=== PATIENT | female | born 1985 | race Caucasian/White ===

== ENCOUNTER 2017-07-24 06:00 | Inpatient (IN) | payer OTHER ==
[2017-07-24] MEDS ORDERED: LIDOCAINE 1% (PF) 10 MG/ML (30 ML SDV) SQ PRN (06:16)
[2017-07-24] MEDS ORDERED: TERBUTALINE 1 MG/ML VIAL SQ PRN (06:16)
[2017-07-24] MEDS ORDERED: CARBOPROST TROMETHAMINE 250 MCG/ML 1 ML AMP IM PRN (06:16)
[2017-07-24] MEDS ORDERED: METHYLERGONOVINE 0.2 MG/ML 1 ML AMP IM PRN (06:16)
[2017-07-24] MEDS ORDERED: OXYTOCIN 10 UNIT/ML 1 ML VIAL IM PRN (06:16)
[2017-07-24 06:23] VITALS: BMI 32.6
[2017-07-24] MEDS ORDERED: OXYTOCIN 20 UNITS/1000 ML NS 1,000 ML IV SCH ×2 (06:30→16:45)
[2017-07-24] MEDS: LACTATED RINGERS 1,000 ML IV SCH ×2 (06:34→12:20)
[2017-07-24 07:34] LABS: Basophils % (A) 0 %; Eosinophils # (A) 0.1 k/uL (0-0.7); Eosinophils % (A) 1 %; HCT 33.7 % (34.0-46.0); HGB 11.2 gm/dL (11.4-16.0); Lymphocytes # (A) 1.9 k/uL (1.0-4.8); Lymphocytes % (A) 22 %; MCH 29.7 pg (25.0-35.0); MCHC 33.3 g/dL (31.0-37.0); Mean Platelet Volume 9.1; Monocytes # (A) 0.5 k/uL (0-1.0); Monocytes % (A) 6 %; Neutrophils # (A) 5.9 k/uL (1.3-7.7); Neutrophils % (A) 69 %; Platelet Count 174 k/uL (150-450); RBC 3.78 m/uL (3.80-5.40); RDW 13.2 % (11.5-15.5); WBC 8.5 k/uL (3.8-10.6)
[2017-07-24] MEDS ORDERED: diphenhydrAMINE 50 MG CAP PO PRN (16:36)
[2017-07-24] MEDS ORDERED: ACETAMINOPHEN TAB 325 MG TAB PO PRN (16:36)
[2017-07-24] MEDS ORDERED: diphenhydrAMINE 25 MG CAP PO PRN (16:36)
[2017-07-24] MEDS ORDERED: WITCH HAZEL 1 EACH MED..PAD TOPICAL PRN (16:36)
[2017-07-24] MEDS ORDERED: ZOLPIDEM 5 MG TAB PO PRN (16:36)
[2017-07-24] MEDS ORDERED: BENZOCAINE/MENTHOL SPRAY 1 GM/SPRAY AEROSOL TOPICAL PRN (16:36)
[2017-07-24] MEDS ORDERED: SIMETHICONE 80 MG CHEWABLE PO PRN (16:36)
[2017-07-24] MEDS ORDERED: diphenhydrAMINE 50 MG/ML 1 ML VIAL IVP PRN ×2 (16:36)
[2017-07-24] MEDS ORDERED: HYDROCORTISONE 2.5% RECTAL CREAM 30 GM TUBE RECTAL PRN (16:36)
[2017-07-24] MEDS ORDERED: LANOLIN CREAM 5 GM TUBE TOPICAL PRN (16:36)
--- NOTE | 2017-07-24 16:36 | P.PROBDLV ---
Vaginal Delivery Note - . Vaginal Delivery Note: This is a very pleasant 31-year-old 4 para 3003 at 39-1/7 weeks with an estimated due date of 513 that presented to labor and delivery for elective induction of labor this morning. Patient was started on Pitocin induction and progressed through labor eventually becoming complete and had a normal spontaneous vaginal delivery of a viable female at 1615 at this time the baby had not been weighed. Apgars of 7 and 9 at one and 5 minutes respectively. There were no Medications no nuchal cord was noted afterwards the vaginal vault was inspected no lacerations were noted uterus is firm and below the umbilicus. Estimated blood loss was approximately 200 mL. Next para patient and tolerated delivery well and are resting comfortably
--- NOTE | 2017-07-24 16:38 | P.HPOB ---
History of Present Illness H&P Date: 07/24/17 Chief Complaint: IUP @ 39 This is a very pleasant 31-year-old 4 para 3003 at 39 1/7 weeks gestation. EDC 07/30 She presents for elective induction of labor. Her care has been uncomplicated up to this point. On blood work showed a blood type of A+, rubella immune, hepatitis B surface antigen negative, HIV negative, RPR nonreactive, group beta strep negative. Review of Systems Constitutional: Reports fatigue, Denies chills, Denies fever Cardiovascular: Reports edema Respiratory: Denies cough, Denies dyspnea Gastrointestinal: Denies constipation, Denies diarrhea Genitourinary: Reports Past Medical History Past Medical History: No Reported History History of Any Multi-Drug Resistant Organisms: None Reported Additional Past Surgical History / Comment(s): Repair of vaginal sidewall laceration s/p vaginal delivery 2011. Pilonidal cystectomy in 2000 Past Anesthesia/Blood Transfusion Reactions: No Reported Reaction Past Psychological History: No Psychological Hx Reported Smoking Status: Never smoker Past Alcohol Use History: None Reported Past Drug Use History: None Reported - Past Family History Father Additional Family Medical History / Comment(s): stent placed Medications and Allergies Home Medications Medication Instructions Recorded Confirmed Type Kwr-Liax-Agshr Acid 1 tab PO DAILY 01/03/14 07/24/17 History [-U Capsule] Allergies Allergy/AdvReac Type Severity Reaction Status Date / Time gluten Allergy Nausea & Verified 07/24/17 06:16 Vomiting & Diarrhea Sulfa (Sulfonamide Allergy Rash/Hives Verified 07/24/17 06:16 Antibiotics) Milk Containing Products AdvReac Unknown Verified 07/24/17 06:16 [Dairy] Exam Osteopathic Statement: *. No significant issues noted on an osteopathic structural exam other than those noted in the History and Physical/Consult. - Vital Signs Vital signs: Vital Signs Temp Pulse Resp BP 07/24/17 06:15 97.1 F L 100 16 132/82 Intake and Output 07/23/17 07/24/17 07/24/17 22:59 06:59 14:59 Other: Weight 97.522 kg - OBG Physical Exam Abdomen: Gravid and appropriate for gestational age Cervix: 5/-2, AROM with clear fluid noted Results Result Diagrams: 07/24/17 07:21 Abnormal Lab Results - Last 24 Hours (Table) 07/24/17 Range/Units 07:21 RBC 3.78 L (3.80-5.40) m/uL Hgb 11.2 L (11.4-16.0) gm/dL Hct 33.7 L (34.0-46.0) % Assessment and Plan (1) 39 weeks gestation of Current Visit: No Status: Acute Code(s): Z3A.39 - 39 WEEKS GESTATION OF SNOMED Code(s): 24558386 (2) Elective induction of labor planned Current Visit: No Status: Acute Code(s): KPN2491 - SNOMED Code(s): 952877784 Plan: Pitocin induction of labor is planned, Stadol and epidural are offered if the patient desires for analgesia. Anticipate spontaneous vaginal delivery later this morning. Time with Patient: Less than 30
[2017-07-24] MEDS: IBUPROFEN 600 MG TAB PO PRN (18:14)
[2017-07-24] MEDS: SENNOSIDES-DOCUSATE SODIUM 1 EACH TAB PO SCH (20:07)
[2017-07-25] MEDS: SENNOSIDES-DOCUSATE SODIUM 1 EACH TAB PO SCH (07:52)
[2017-07-25] MEDS: IBUPROFEN 600 MG TAB PO PRN (07:53)
[2017-07-25 07:56] LABS: Basophils % (A) 0 %; Eosinophils # (A) 0.1 k/uL (0-0.7); Eosinophils % (A) 1 %; HCT 33.9 % (34.0-46.0); Lymphocytes # (A) 2.4 k/uL (1.0-4.8); Lymphocytes % (A) 21 %; MCH 29.5 pg (25.0-35.0); MCHC 32.4 g/dL (31.0-37.0); MCV 91.2 fL (80.0-100.0); Mean Platelet Volume 8.4; Monocytes # (A) 0.6 k/uL (0-1.0); Monocytes % (A) 5 %; Neutrophils % (A) 71 %; Platelet Count 197 k/uL (150-450); RBC 3.72 m/uL (3.80-5.40); RDW 13.3 % (11.5-15.5); WBC 11.2 k/uL (3.8-10.6)
--- NOTE | 2017-07-25 08:17 | P.DS ---
Providers Date of admission: 07/24/17 06:05 Expected date of discharge: 07/25/17 Attending physician: Falguni Dang Primary care physician: Stated None - Discharge Diagnosis(es) (1) 39 weeks gestation of Current Visit: No Status: Acute (2) Elective induction of labor planned Current Visit: No Status: Acute (3) Normal spontaneous vaginal delivery Current Visit: No Status: Acute Hospital Course: This is a very pleasant 31-year-old 4 para 3003 that was admitted on 57 for elective induction of labor at 39-1/7 weeks. Patient was started on Pitocin and progressed through labor became complete and had a normal spontaneous vaginal delivery of a viable female infant weight of 8 lbs. 1 oz. with Apgars of 7 and 9 at one and 5 minutes respectively. Patient's course has been uneventful. On this day #1 she is ambulating and voiding without difficulty. She is tolerating a regular diet without nausea or vomiting. She does wish to be discharged home today. Patient Condition at Discharge: Good Plan - Discharge Summary New Discharge Prescriptions: No Action Nsu-Ndeu-Sbiez Acid [-U Capsule] 1 tab PO DAILY Discharge Medication List Ihk-Zbkn-Qdhqi Acid [-U Capsule] 1 tab PO DAILY 01/03/14 [ History] Follow up Appointment(s)/Referral(s): Falguni Dang DO [Doctor of Osteopathic Medicine] - 4 Weeks Discharge Disposition: HOME SELF-CARE
[2017-07-25] MEDS ORDERED: PRENATAL VIT-IRON-FOLIC ACID 1 EACH CAP PO SCH (09:00)
[2017-07-25 15:49] VITALS: BP 135/83; PULSE 77; RESP 17; TEMP 98.7
== END 2017-07-25 17:35 | disposition home or self-care (01) | DRG 775 ==
LOC: 4FBP 06:05
PROVIDERS: ADMIT Obstetrics & Gynecology Obstetrics; ATTEND Obstetrics & Gynecology Obstetrics
PROC: 10E0XZZ Delivery of Products of Conception, External Approach (ICD-10-PCS; principal; 2017-07-24)
PROC: 3E033VJ Introduction of Other Hormone into Peripheral Vein, Percutaneous Approach (ICD-10-PCS; 2017-07-24)
DX: O80 Encounter for full-term uncomplicated delivery (principal); Z37.0 Single live birth; Z3A.39 39 weeks gestation of pregnancy; Z91.011 Allergy to milk products; Z88.2 Allergy status to sulfonamides; Z91.018 Allergy to other foods
CPT/HCPCS: 85025; 88307

== ENCOUNTER 2018-09-26 14:21 | Inpatient (IN) | payer OTHER ==
[2018-09-26] MEDS ORDERED: LIDOCAINE 0.5% (PF) 5 MG/ML (50 ML SDV) SQ PRN (14:22)
[2018-09-26] MEDS ORDERED: TERBUTALINE 1 MG/ML VIAL SQ PRN (14:22)
[2018-09-26] MEDS ORDERED: METHYLERGONOVINE 0.2 MG/ML 1 ML AMP IM PRN (14:22)
[2018-09-26] MEDS ORDERED: OXYTOCIN 10 UNIT/ML 1 ML VIAL IM PRN (14:22)
[2018-09-26] MEDS ORDERED: CARBOPROST TROMETHAMINE 250 MCG/ML 1 ML AMP IM PRN (14:22)
[2018-09-26] MEDS ORDERED: OXYTOCIN 30 UNITS/500 ML NS 30 UNIT in SALINE 1 500ML.BAG IV SCH (14:30)
[2018-09-26] MEDS: LACTATED RINGERS 1,000 ML IV SCH ×2 (14:41→17:32)
[2018-09-26 15:06] VITALS: BMI 34.0
[2018-09-26 15:12] LABS: Basophils % (A) 0 %; Eosinophils # (A) 0.2 k/uL (0-0.7); Eosinophils % (A) 2 %; HCT 33.5 % (34.0-46.0); HGB 11.2 gm/dL (11.4-16.0); Lymphocytes # (A) 1.8 k/uL (1.0-4.8); Lymphocytes % (A) 19 %; MCH 29.8 pg (25.0-35.0); MCHC 33.5 g/dL (31.0-37.0); MCV 89.2 fL (80.0-100.0); Mean Platelet Volume 8.5; Monocytes # (A) 0.6 k/uL (0-1.0); Monocytes % (A) 6 %; Neutrophils # (A) 6.6 k/uL (1.3-7.7); Neutrophils % (A) 70 %; Platelet Count 197 k/uL (150-450); RBC 3.76 m/uL (3.80-5.40); RDW 13.5 % (11.5-15.5); WBC 9.4 k/uL (3.8-10.6)
--- NOTE | 2018-09-26 17:41 | P.HPOB ---
History of Present Illness H&P Date: 09/26/18 Chief Complaint: IUP 38 5/7 weeks, advanced cervical dilation This is a pleasant 32-year-old 5 para 4004 at 38-5/7 weeks that presented to the office today for routine care. Patient was noted to be 4 cm dilated with a bulging bag of water. Patient was sent to labor and delivery for admission. Patient's care has been uncomplicated and she has been receiving routine care with myself. Patient doesn't have a history of hypothyroidism and has been on Synthroid 25 g daily. On bloodwork should a blood type of A+, rubella immune, RPR nonreactive, hepatitis B surface antigen negative, HIV negative, normal gestational diabetes screen on 03/26/18. Group beta strep negative on 09/03/18. Review of Systems Constitutional: Denies chills, Denies fatigue, Denies fever Ears, nose, mouth and throat: Denies headache Cardiovascular: Reports leg edema Respiratory: Denies dyspnea Gastrointestinal: Denies constipation, Denies diarrhea, Denies nausea, Denies vomiting Genitourinary: Reports Past Medical History Past Medical History: No Reported History History of Any Multi-Drug Resistant Organisms: None Reported Additional Past Surgical History / Comment(s): Repair of vaginal sidewall laceration s/p vaginal delivery 2011. Pilonidal cystectomy in 2000 Past Anesthesia/Blood Transfusion Reactions: No Reported Reaction Past Psychological History: No Psychological Hx Reported Smoking Status: Never smoker Past Alcohol Use History: None Reported Past Drug Use History: None Reported - Past Family History Father Additional Family Medical History / Comment(s): stent placed Medications and Allergies Home Medications Medication Instructions Recorded Confirmed Type Udd-Jfpn-Ksggt Acid 1 tab PO DAILY 01/03/14 09/26/18 History [-U Capsule] Levothyroxine Sodium [Synthroid] 25 mcg PO DAILY 09/26/18 09/26/18 History Allergies Allergy/AdvReac Type Severity Reaction Status Date / Time gluten Allergy Nausea & Verified 09/26/18 14:33 Vomiting & Diarrhea Sulfa (Sulfonamide Allergy Rash/Hives Verified 09/26/18 14:33 Antibiotics) Milk Containing Products AdvReac Unknown Verified 09/26/18 14:33 [Dairy] Exam Osteopathic Statement: *. No significant issues noted on an osteopathic structural exam other than those noted in the History and Physical/Consult. Vital Signs Temp Pulse Resp BP Pulse Ox 09/26/18 14:24 98.3 F 70 16 131/79 98 Intake and Output 09/26/18 09/26/18 09/26/18 06:59 14:59 22:59 Other: Weight 101.605 kg Targeted physical exam was performed and the state in general this a well- nourished well-developed female in no acute distress, she is noted to have nonlabored breathing in her heart has regular rate and rhythm her abdomen is noted to be gravid and appropriate for gestational age, her cervix is noted to be 5/70/-2 amniotomy is performed and clear fluid was obtained. heart tones noted be category 1 and she is [place] regularly Results Result Diagrams: 09/26/18 14:40 Abnormal Lab Results - Last 24 Hours (Table) 09/26/18 Range/Units 14:40 RBC 3.76 L (3.80-5.40) m/uL Hgb 11.2 L (11.4-16.0) gm/dL Hct 33.5 L (34.0-46.0) % Assessment and Plan (1) Term Current Visit: Yes Status: Acute Code(s): Z34.90 - ENCNTR FOR SUPRVSN OF NORMAL , UNSP, UNSP TRIMESTER SNOMED Code(s): 98702146 (2) Prolonged latent phase of labor Narrative/Plan: Advanced cervical dilation Current Visit: Yes Status: Acute Code(s): O62.0 - PRIMARY INADEQUATE CONTRACTIONS SNOMED Code(s): 290396337 Plan: Patient is admitted to labor and delivery for augmentation of labor. Anticipate spontaneous vaginal delivery.
[2018-09-26] MEDS ORDERED: diphenhydrAMINE 25 MG CAP PO PRN (19:33)
[2018-09-26] MEDS ORDERED: diphenhydrAMINE 50 MG CAP PO PRN (19:33)
[2018-09-26] MEDS ORDERED: diphenhydrAMINE 50 MG/ML 1 ML VIAL IVP PRN ×2 (19:33)
[2018-09-26] MEDS ORDERED: HYDROCORTISONE 2.5% RECTAL CREAM 30 GM TUBE RECTAL PRN (19:33)
[2018-09-26] MEDS ORDERED: WITCH HAZEL 1 EACH MED..PAD TOPICAL PRN (19:33)
[2018-09-26] MEDS ORDERED: ACETAMINOPHEN TAB 325 MG TAB PO PRN (19:33)
[2018-09-26] MEDS ORDERED: ZOLPIDEM 5 MG TAB PO PRN (19:33)
[2018-09-26] MEDS ORDERED: SIMETHICONE 80 MG CHEWABLE PO PRN (19:33)
[2018-09-26] MEDS ORDERED: LANOLIN CREAM 5 GM TUBE TOPICAL PRN (19:33)
[2018-09-26] MEDS ORDERED: BENZOCAINE/MENTHOL SPRAY 1 GM/SPRAY AEROSOL TOPICAL PRN (19:33)
--- NOTE | 2018-09-26 19:42 | P.PROBDLV ---
Vaginal Delivery Note - . Vaginal Delivery Note: This is a pleasant 32-year-old 5 para 4004 at 38-5/7 weeks that presented to the office today for routine care. Patient requested cervical exam and on cervical exam she was noted to be 4/70/-2 with a bulging bag of water. Patient was then sent to labor and delivery and admitted. Patient underwent artificial rupture of membranes with clear fluid being noted. A small amount of Pitocin was used to augment labor patient progressed quickly to complete, patient was placed in a modified Milind position and with excellent maternal effort, had a normal spontaneous vaginal delivery of a viable male infant at 1904, weight of 7 lbs. 13 oz. with Apgars of 9 and 9 at one and 5 minutes respectively. After a two-minute delayed the umbilical cord was doubly clamped and cut and the placenta was delivered spontaneously intact with a three-vessel cord being noted. On inspection the patient's vaginal vault no lacerations were noted. The uterus was noted to be firm and below the umbilicus at this time. Estimated blood loss, 200 mL Patient and tolerated delivery well and are resting comfortably
[2018-09-26] MEDS ORDERED: OXYTOCIN 20 UNITS/1000 ML NS 1,000 ML IV SCH (19:45)
[2018-09-26] MEDS: IBUPROFEN 600 MG TAB PO PRN (19:56)
[2018-09-26] MEDS: SENNOSIDES-DOCUSATE SODIUM 1 EACH TAB PO SCH (19:56)
[2018-09-27] MEDS: IBUPROFEN 600 MG TAB PO PRN ×3 (06:51→21:17)
[2018-09-27] MEDS: LEVOTHYROXINE 25 MCG TAB PO SCH (06:51)
[2018-09-27 06:57] LABS: Basophils % (A) 0 %; Eosinophils # (A) 0.1 k/uL (0-0.7); Eosinophils % (A) 1 %; HCT 30.8 % (34.0-46.0); HGB 10.4 gm/dL (11.4-16.0); Lymphocytes # (A) 2.5 k/uL (1.0-4.8); Lymphocytes % (A) 23 %; MCH 29.7 pg (25.0-35.0); MCHC 33.7 g/dL (31.0-37.0); MCV 88.1 fL (80.0-100.0); Mean Platelet Volume 9.2; Monocytes # (A) 0.6 k/uL (0-1.0); Monocytes % (A) 5 %; Neutrophils # (A) 7.3 k/uL (1.3-7.7); Neutrophils % (A) 69 %; Platelet Count 182 k/uL (150-450); RDW 13.8 % (11.5-15.5); WBC 10.7 k/uL (3.8-10.6)
[2018-09-27] MEDS: SENNOSIDES-DOCUSATE SODIUM 1 EACH TAB PO SCH ×2 (08:06→21:18)
--- NOTE | 2018-09-27 08:42 | P.PNOBGVD ---
Subjective - Subjective Principal diagnosis: PPD 1 Interval history: Patient has done well since delivery. She is ambulating and voiding without difficulty. She is tolerating a regular diet without nausea or vomiting. She denies concerns and states her pain is well-controlled. She is pumping as the infant is in the nursery. Lochia is moderate. Patient reports: Reports appetite normal, Reports voiding normally, Reports pain well controlled, Reports ambulating normally : doing well (In the nursery on room air) Objective - Latest Vital Signs Latest vital signs: Vital Signs Temp Pulse Resp BP Pulse Ox 09/27/18 07:50 97.5 F L 63 18 127/80 09/27/18 04:00 98.8 F 78 14 111/69 09/27/18 00:00 97.3 F L 65 16 123/65 09/26/18 20:55 60 16 124/76 09/26/18 20:40 60 16 120/72 09/26/18 20:10 55 L 16 126/74 09/26/18 19:55 61 16 121/72 09/26/18 19:40 63 16 118/66 09/26/18 19:25 70 16 126/66 09/26/18 19:10 98.5 F 60 16 129/66 09/26/18 14:24 98.3 F 70 16 131/79 98 Intake and Output 09/26/18 09/27/18 09/27/18 22:59 06:59 14:59 Other: # Voids 1 - Exam Extremities: Present: edema Abdomen: Present: normal appearance Uterus: Present: normal - Labs Labs: Abnormal Lab Results - Last 24 Hours (Table) 09/26/18 09/27/18 Range/Units 14:40 06:42 WBC 10.7 H (3.8-10.6) k/uL RBC 3.76 L 3.50 L (3.80-5.40) m/uL Hgb 11.2 L 10.4 L (11.4-16.0) gm/dL Hct 33.5 L 30.8 L (34.0-46.0) % Assessment and Plan (1) Term Current Visit: Yes Status: Acute Code(s): Z34.90 - ENCNTR FOR SUPRVSN OF NORMAL , UNSP, UNSP TRIMESTER SNOMED Code(s): 65886547 (2) Prolonged latent phase of labor Current Visit: Yes Status: Acute Code(s): O62.0 - PRIMARY INADEQUATE CONTRACTIONS SNOMED Code(s): 671466644 (3) Normal spontaneous vaginal delivery Current Visit: No Status: Acute Code(s): O80 - ENCOUNTER FOR FULL-TERM UNCOMPLICATED DELIVERY SNOMED Code(s): 35968753 Plan: Patient continues to do well we'll continue routine care and anticipate discharge home tomorrow
[2018-09-27] MEDS ORDERED: PRENATAL VIT-IRON-FOLIC ACID 1 EACH CAP PO SCH (09:00)
[2018-09-28] MEDS: LEVOTHYROXINE 25 MCG TAB PO SCH (06:21)
[2018-09-28 09:02] VITALS: BP 135/81; PULSE 75; RESP 16; TEMP 98.2
[2018-09-28] MEDS: IBUPROFEN 600 MG TAB PO PRN (09:09)
--- NOTE | 2018-09-28 10:08 | P.DS ---
Providers Date of admission: 09/26/18 14:21 Expected date of discharge: 09/28/18 Attending physician: Falguni Dang Primary care physician: Stated None - Discharge Diagnosis(es) (1) Term Current Visit: Yes Status: Acute (2) Prolonged latent phase of labor Current Visit: Yes Status: Acute (3) Normal spontaneous vaginal delivery Current Visit: No Status: Acute Hospital Course: This is a pleasant 32-year-old 5 para 4004 that presented to labor and delivery for advanced cervical dilation at 30-5/7 weeks. Patient was seen in the office and upon exam was noted to be 4/70/-2 with a bulging bag of water. Patient was then sent to labor and delivery for delivery. Patient was admitted artificial rupture membranes was completed and clear fluid was obtained. Patient began [place] Pitocin augmentation of labor was begun in addition. Patient progressed to complete began pushing and had a normal spontaneous vaginal delivery of a viable male at 1904, weight of 7 lbs. 13 oz. with Apgars of 9 and 9 at one and 5 minutes respectively. Patient did not sustain any vaginal lacerations during delivery. Next Patient's course has been uneventful. She has been doing well. She is ambulating and voiding without difficulty. Her lochia is moderate, she is pumping/breast-feeding as the infant was in the nursery secondary to questionable respiratory issues. Patient is ready for discharge home as well as infant has been cleared from service writer advisor. Patient Condition at Discharge: Good Plan - Discharge Summary New Discharge Prescriptions: No Action Dua-Zkhj-Bmflz Acid [-U Capsule] 1 tab PO DAILY Levothyroxine Sodium [Synthroid] 25 mcg PO DAILY Discharge Medication List Wqb-Bwip-Cbjxc Acid [-U Capsule] 1 tab PO DAILY 01/03/14 [History] Levothyroxine Sodium [Synthroid] 25 mcg PO DAILY 09/26/18 [History] Follow up Appointment(s)/Referral(s): Falguni Dang DO [Doctor of Osteopathic Medicine] - 4 Weeks Patient Instructions/Handouts: Vaginal Delivery (DC), Vaginal Delivery (GEN) Discharge Disposition: HOME SELF-CARE
== END 2018-09-28 17:55 | disposition home or self-care (01) | DRG 807 ==
LOC: 4FBP 14:21
PROVIDERS: ADMIT Obstetrics & Gynecology Obstetrics; ATTEND Obstetrics & Gynecology Obstetrics
PROC: 10E0XZZ Delivery of Products of Conception, External Approach (ICD-10-PCS; principal; 2018-09-26)
DX: O63.0 Prolonged first stage (of labor) (principal); Z37.0 Single live birth; Z3A.38 38 weeks gestation of pregnancy; Z79.890 Hormone replacement therapy; Z91.011 Allergy to milk products; Z88.2 Allergy status to sulfonamides; Z91.018 Allergy to other foods
CPT/HCPCS: 85025; 86850; 86900; 86901

== ENCOUNTER → 2019-05-16 | Outpatient (CLI) | payer OTHER ==
--- NOTE | 2019-05-16 10:33 | USB ---
Reason for exam: clinical finding. History: Family history of breast cancer in paternal aunt. Indicated problem(s): lump or thickening in the left breast. Physical Findings: Nurse Summary: patient states doctor felt left breast lump 2 weeks ago, asymmetric dense tissue versus fibrocystic (nurse mj). US Breast LT Technologist: Anju Nassar Left complete breast ultrasound includes all four quadrants, the retroareolar region and axilla. Finding demonstrates no cystic or solid lesion seen. These results were verbally communicated with the patient and result sheet given to the patient on 05/16/19. ASSESSMENT: Negative, BI-RAD 1 RECOMMENDATION: Routine screening mammogram of both breasts at age 38. Manage on a clinical basis with regard to palpable region.
== END | disposition home or self-care (01) ==
LOC: RADUSWWP 08:13
PROVIDERS: ATTEND Obstetrics & Gynecology Obstetrics
DX: N63.42 Unspecified lump in left breast, subareolar (principal)

== ENCOUNTER 2020-11-25 13:07 | Emergency (ER) | payer OTHER ==
[2020-11-25 13:11] VITALS: RESP 18
[2020-11-25] MEDS ORDERED: SODIUM CHLORIDE 0.9% 500 ML 500 ML IV STA (13:25)
[2020-11-25] MEDS ORDERED: KETOROLAC 15 MG/ML 1 ML VIAL IVP STA (13:25)
--- NOTE | 2020-11-25 13:57 | ED ---
Abdominal Pain HPI - General Chief Complaint: Abdominal Pain Stated Complaint: Abdominal Pain Time Seen by Provider: 11/25/20 13:12 Source: patient Mode of arrival: ambulatory Limitations: no limitations - History of Present Illness Initial Comments: Patient is a 35-year-old female presenting to the emergency Department with complaints of left lower quadrant, pelvic pain over the past 3 days. She states it feels lower, and her pelvic region and on the left side. She thought it could be from ovulation or her getting ready start her menstrual cycle however the pain has been steady and not going away. She states she's never had this kind of pain before. She denies history of any abdominal surgeries, she's had 5 vaginal births. She denies any nausea or vomiting, no diarrhea, her bowel movements have been normal, no dysuria. She denies being secondary to having vasectomy. She has no fevers or chills, no chest pain or short ness of breath. She has no further complaints at this time. Her vital signs are stable upon arrival. - Related Data Home Medications Medication Instructions Recorded Confirmed Eqw-Cong-Uhjeq Acid 1 tab PO DAILY 01/03/14 09/26/18 [-U Capsule] Levothyroxine Sodium [Synthroid] 25 mcg PO DAILY 09/26/18 09/26/18 Previous Rx's Medication Instructions Recorded Amoxicillin/Potassium Clav 1 tab PO BID 7 Days #14 tab 11/25/20 [Augmentin 875-125 Tablet] Allergies Allergy/AdvReac Type Severity Reaction Status Date / Time Sulfa (Sulfonamide Allergy Rash/Hives Verified 11/25/20 13:09 Antibiotics) Review of Systems ROS Statement: Those systems with pertinent positive or pertinent negative responses have been documented in the HPI. ROS Other: All systems not noted in ROS Statement are negative. Past Medical History Past Medical History: No Reported History History of Any Multi-Drug Resistant Organisms: None Reported Additional Past Surgical History / Comment(s): Repair of vaginal sidewall laceration s/p vaginal delivery 2011. Pilonidal cystectomy in 2000 Past Anesthesia/Blood Transfusion Reactions: No Reported Reaction Past Psychological History: No Psychological Hx Reported Smoking Status: Never smoker Past Alcohol Use History: None Reported Past Drug Use History: None Reported - Past Family History Father Additional Family Medical History / Comment(s): stent placed General Exam - General Exam Comments Initial Comments: GENERAL: Patient is well-developed and well-nourished. Patient is nontoxic and in no acute distress. HEAD: Atraumatic, normocephalic. EYES: Pupils equal round and reactive to light, extraocular movements intact, sclera anicteric, conjunctiva are normal. Eyelids were unremarkable. ENT: TMs normal, nares patent, oropharynx clear without exudates. Moist mucous membranes. NECK: Normal range of motion, supple without lymphadenopathy or JVD. LUNGS: Unlabored respirations. Breath sounds clear to auscultation bilaterally and equal. No wheezes rales or rhonchi. HEART: Regular rate and rhythm without murmurs, rubs or gallops. ABDOMEN: Soft, tender to palpation of the left lower quadrant, lower left pelvic region normoactive bowel sounds. No guarding, no rebound. No masses appreciated. : Deferred MUSCULOSKELETAL: Normal extremities with adequate strength and normal range of motion, no pitting or edema. No clubbing or cyanosis. NEUROLOGICAL: Patient is alert and oriented x 3. SKIN: Warm, Dry, normal turgor, no rashes or lesions noted. Limitations: no limitations Course Vital Signs 11/25/20 13:10 Temperature 98.0 F Pulse Rate 90 Respiratory 18 Rate Blood Pressure 147/99 O2 Sat by Pulse 97 Oximetry Medical Decision Making - Medical Decision Making Patient is a 35-year-old female here with left lower pelvic pain for the past 3 days. No history of abdominal surgeries, no fevers, no nausea or vomiting. Vital signs stable here today. Labs show a normal white count, electrolytes within normal limits, urine shows no evidence of infection. Urine hCG is not detected. Pelvic ultrasound shows no evidence of ovarian torsion at this time. CT of abdomen and pelvis was then ordered, suggestion of inflammatory change the descending colon, correlate for colitis or acute diverticulitis. Given patient's 3-4 days of symptoms, we will treat her for possible acute diverticulitis. Patient was placed on Augmentin. She is stable for discharge at this time. Recommended Tylenol or ibuprofen for any discomfort. She is agreeable to this. Return parameters were discussed with her and she verbalized understanding. Case discussed with Dr. Marcial. - Lab Data Result diagrams: 11/25/20 13:57 11/25/20 13:57 Lab Results 11/25/20 11/25/20 11/25/20 Range/Units 13:57 13:57 13:57 WBC 8.0 (3.8-10.6) k/uL RBC 4.61 (3.80-5.40) m/uL Hgb 14.3 (11.4-16.0) gm/dL Hct 41.8 (34.0-46.0) % MCV 90.6 (80.0-100.0) fL MCH 31.0 (25.0-35.0) pg MCHC 34.3 (31.0-37.0) g/dL RDW 12.2 (11.5-15.5) % Plt Count 242 (150-450) k/uL MPV 8.0 Neutrophils % 69 % Lymphocytes % 23 % Monocytes % 5 % Eosinophils % 2 % Basophils % 0 % Neutrophils # 5.5 (1.3-7.7) k/uL Lymphocytes # 1.8 (1.0-4.8) k/uL Monocytes # 0.4 (0-1.0) k/uL Eosinophils # 0.2 (0-0.7) k/uL Basophils # 0.0 (0-0.2) k/uL Sodium (137-145) mmol/L Potassium (3.5-5.1) mmol/L Chloride (98-107) mmol/L Carbon Dioxide (22-30) mmol/L Anion Gap mmol/L BUN (7-17) mg/dL Creatinine (0.52-1.04) mg/dL Est GFR (CKD-EPI)AfAm (>60 ml/min/1.73 sqM) Est GFR (CKD-EPI)NonAf (>60 ml/min/1.73 sqM) Glucose (74-99) mg/dL Plasma Lactic Acid Yo (0.7-2.0) mmol/L Calcium (8.4-10.2) mg/dL Total Bilirubin (0.2-1.3) mg/dL AST (14-36) U/L ALT (4-34) U/L Alkaline Phosphatase (38-126) U/L Total Protein (6.3-8.2) g/dL Albumin (3.5-5.0) g/dL Lipase (23-300) U/L Urine Color Yellow Urine Appearance Cloudy H (Clear) Urine pH 5.5 (5.0-8.0) Ur Specific [place] 1.027 (1.001-1.035) Urine Protein Trace H (Negative) Urine Glucose (UA) Negative (Negative) Urine Ketones Negative (Negative) Urine Blood Trace H (Negative) Urine Nitrite Negative (Negative) Urine Bilirubin Negative (Negative) Urine Urobilinogen <2.0 (<2.0) mg/dL Ur Leukocyte Esterase Negative (Negative) Urine RBC 3 (0-5) /hpf Urine WBC 2 (0-5) /hpf Ur Squamous Epith Cells 4 (0-4) /hpf Amorphous Sediment Rare H (None) /hpf Urine Bacteria Rare H (None) /hpf Hyaline Casts 1 (0-2) /lpf Urine Mucus Moderate H (None) /hpf Urine HCG, Qual Not Detected (Not Detectd) 11/25/20 11/25/20 Range/Units 13:57 13:57 WBC (3.8-10.6) k/uL RBC (3.80-5.40) m/uL Hgb (11.4-16.0) gm/dL Hct (34.0-46.0) % MCV (80.0-100.0) fL MCH (25.0-35.0) pg MCHC (31.0-37.0) g/dL RDW (11.5-15.5) % Plt Count (150-450) k/uL MPV Neutrophils % % Lymphocytes % % Monocytes % % Eosinophils % % Basophils % % Neutrophils # (1.3-7.7) k/uL Lymphocytes # (1.0-4.8) k/uL Monocytes # (0-1.0) k/uL Eosinophils # (0-0.7) k/uL Basophils # (0-0.2) k/uL Sodium 137 (137-145) mmol/L Potassium 4.1 (3.5-5.1) mmol/L Chloride 104 (98-107) mmol/L Carbon Dioxide 24 (22-30) mmol/L Anion Gap 9 mmol/L BUN 10 (7-17) mg/dL Creatinine 0.64 (0.52-1.04) mg/dL Est GFR (CKD-EPI)AfAm >90 (>60 ml/min/1.73 sqM) Est GFR (CKD-EPI)NonAf >90 (>60 ml/min/1.73 sqM) Glucose 98 (74-99) mg/dL Plasma Lactic Acid Yo 1.1 (0.7-2.0) mmol/L Calcium 9.8 (8.4-10.2) mg/dL Total Bilirubin 0.4 (0.2-1.3) mg/dL AST 20 (14-36) U/L ALT 13 (4-34) U/L Alkaline Phosphatase 54 (38-126) U/L Total Protein 7.7 (6.3-8.2) g/dL Albumin 4.4 (3.5-5.0) g/dL Lipase 78 (23-300) U/L Urine Color Urine Appearance (Clear) Urine pH (5.0-8.0) Ur Specific [place] (1.001-1.035) Urine Protein (Negative) Urine Glucose (UA) (Negative) Urine Ketones (Negative) Urine Blood (Negative) Urine Nitrite (Negative) Urine Bilirubin (Negative) Urine Urobilinogen (<2.0) mg/dL Ur Leukocyte Esterase (Negative) Urine RBC (0-5) /hpf Urine WBC (0-5) /hpf Ur Squamous Epith Cells (0-4) /hpf Amorphous Sediment (None) /hpf Urine Bacteria (None) /hpf Hyaline Casts (0-2) /lpf Urine Mucus (None) /hpf Urine HCG, Qual (Not Detectd) Disposition Clinical Impression: Left lower quadrant abdominal pain, Acute diverticulitis Disposition: HOME SELF-CARE Condition: Stable Instructions (If sedation given, give patient instructions): Diverticulitis (ED) Additional Instructions: Please return to the Emergency Department if symptoms worsen or any other concerns. Take antibiotics as prescribed starting today. May take Tylenol or ibuprofen for any discomfort. Please follow-up with your primary care physician. Prescriptions: Amoxicillin/Potassium Clav [Augmentin 875-125 Tablet] 1 tab PO BID 7 Days #14 tab Is patient prescribed a controlled substance at d/c from ED?: No Referrals: Edd Cerda DO [Primary Care Provider] - 1-2 days Time of Disposition: 16:19
[2020-11-25 14:29] LABS: Basophils % (A) 0 %; Eosinophils # (A) 0.2 k/uL (0-0.7); Eosinophils % (A) 2 %; HCT 41.8 % (34.0-46.0); HGB 14.3 gm/dL (11.4-16.0); Lymphocytes # (A) 1.8 k/uL (1.0-4.8); Lymphocytes % (A) 23 %; MCHC 34.3 g/dL (31.0-37.0); MCV 90.6 fL (80.0-100.0); Monocytes # (A) 0.4 k/uL (0-1.0); Monocytes % (A) 5 %; Neutrophils # (A) 5.5 k/uL (1.3-7.7); Neutrophils % (A) 69 %; Platelet Count 242 k/uL (150-450); RBC 4.61 m/uL (3.80-5.40); RDW 12.2 % (11.5-15.5)
[2020-11-25 14:35] LABS: Amorphous Sediment,Urine Rare /hpf; Appearance,Urine Cloudy (Clear); Bacteria,Urine Rare /hpf; Bilirubin,Urine Negative (Negative); Blood,Urine Trace (Negative); Color,Urine Yellow; Glucose,Urine (UA) Negative (Negative); Hyaline Casts,Urine 1 /lpf (0-2); Ketones,Urine Negative (Negative); Leukocyte Esterase,Urine Negative (Negative); Mucus,Urine Moderate /hpf; Nitrite,Urine Negative (Negative); PH, Urine 5.5 (5.0-8.0); Protein,Urine Trace (Negative); RBC,Urine 3 /hpf (0-5); Specific Gravity,Urine 1.027 (1.001-1.035); Squamous Epithelial Cell,Urine 4 /hpf (0-4); Urobilinogen,Urine <2.0 mg/dL (<2.0); WBC,Urine 2 /hpf (0-5)
[2020-11-25 14:41] LABS: ALT 13 U/L (4-34); AST 20 U/L (14-36); African American GFR (CKD) >90 (>60 ml/min/1.73 sqM); Albumin 4.4 g/dL (3.5-5.0); Alkaline Phosphatase 54 U/L (38-126); Anion Gap 9 mmol/L; Blood Urea Nitrogen 10 mg/dL (7-17); Calcium 9.8 mg/dL (8.4-10.2); Carbon Dioxide 24 mmol/L (22-30); Chloride 104 mmol/L (98-107); Glucose 98 mg/dL (74-99); Lipase 78 U/L (23-300); Non-African American GFR(CKD) >90 (>60 ml/min/1.73 sqM); Potassium 4.1 mmol/L (3.5-5.1); Sodium 137 mmol/L (137-145); Total Bilirubin 0.4 mg/dL (0.2-1.3); Total Protein 7.7 g/dL (6.3-8.2)
--- NOTE | 2020-11-25 14:41 | US ---
EXAMINATION TYPE: US pelvis complete transvag DATE OF EXAM: 11/25/2020 COMPARISON: NONE CLINICAL HISTORY: LL pelvic pain x 3 days. TECHNIQUE: Transvaginal (TV) and Transabdominal (TA) . Date of LMP: 11/04/2020 EXAM MEASUREMENTS: Uterus: 9.9 x 4.9 x 5.9 cm Endometrial Stripe: 1.7 cm Right Ovary: 3.5 x 2.7 x 3.9 cm Left Ovary: 2.5 x 2.3 x 2.9 cm 1. Uterus: Anteverted wnl 2. Endometrium: 1.7 cm 3. Right Ovary: wnl 4. Left Ovary: only seen transabdominally, wnl. Spectral, color and waveform doppler imaging shows good arterial and venous flow within the ovaries ; there is no evidence for ovarian torsion. 5. Bilateral Adnexa: small amount of free fluid near right ovary. 6. Posterior cul-de-sac: no free fluid IMPRESSION: 1. Endometrial stripe measures 17 mm and should be correlated clinically with phase of patient's mens trual cycle to exclude endometrial pathology. 2. Small amount of free fluid within the bilateral adnexa is nonspecific.
--- NOTE | 2020-11-25 15:58 | CT ---
EXAMINATION TYPE: CT abdomen pelvis w con DATE OF EXAM: 11/25/2020 COMPARISON: None INDICATION: Left lower quadrant pain. DLP: 1589.5 mGycm, Automated exposure control for dose reduction was used. CONTRAST: 100 mL of Isovue 300. Study performed without Oral Contrast TECHNIQUE: Axial images were obtained from above the diaphragm to the pubic rami in the axial plane a t 5 mm thick sections. Reconstructed images are reviewed on the computer in the coronal plane. FINDINGS: Limited CT sections are obtained the lung bases. The lung bases are clear. CT ABDOMEN: Liver: Normal Spleen: Normal Pancreas: Normal Adrenal glands: The adrenal glands are normal. Gallbladder: Normal Kidneys: No masses are evident. No hydronephrosis is present. No cysts are present. Delayed images were obtained through the kidneys, which remain unremarkable. Aorta: Vascular calcification is within the aorta. Inferior vena cava: Normal. CT PELVIS: No dilated loops of bowel are evident. There is inflammatory change adjacent to the descending colon sigmoid colon junction compatible some diverticulitis or colitis. No free air is evident. No suspicio us abscess formation is evident. There are loops of bowel which are incompletely distended or lack or al contrast limiting their evaluation. Appendix: Normal as visualized. Urinary bladder: Normal. Genitourinary structures: Uterus is normal. Adnexa are normal. Osseous structures: No suspicious lytic or sclerotic lesions. IMPRESSIONS: 1. Suggestion of inflammatory change adjacent to the descending colon sigmoid colon junction. Correl ate for colitis or acute diverticulitis.
[2020-11-25 16:40] VITALS: BP 143/88; PULSE 87; TEMP 97.7
== END 2020-11-25 16:39 | disposition home or self-care (01) ==
LOC: EC 13:07
DX: K57.32 Diverticulitis of large intestine without perforation or abscess without bleeding (principal); Z79.890 Hormone replacement therapy; Z88.2 Allergy status to sulfonamides
CPT/HCPCS: 36415; 80053; 83605; 83690; 85025; 81001; 81025; 93975; 76856; 76830; 74177; 96374; 99284; J1885; Q9967